=== PATIENT | male | born 1950 | race Caucasian/White ===

== ENCOUNTER 2022-02-12 21:18 | Inpatient (IN) | payer OTHER ==
[~2022-02-12] VITALS: Ht 182.9 cm; Wt 79.4 kg
[2022-02-12 21:30] VITALS: BP_SYST 135
[2022-02-12 22:13] LABS: HEMATOCRIT 42.1 % (36-54); MEAN CORPUSCULAR HEMOGLOBIN 29 pg (27-31); MEAN CORPUSCULAR HGB CONC 33 % (32-36); MEAN CORPUSCULAR VOLUME 87 fL (79.0-98.0); PLATELET COUNT (AUTO) 295 K/uL (130-430); RED BLOOD CELL COUNT(AUTO) 4.85 MIL/uL (4.2-6.2); RED CELL DISTRIBUTION WIDTH 13.9 % (9.0-15.0); WHITE BLOOD COUNT (AUTO) 18.9 K/uL (4.8-10.8)
[2022-02-12 22:29] LABS: ANION GAP 7 (5-15); BAND % (MANUAL) 3 % (0-6); BASOPHILS % (MANUAL) 0 % (0-2); CALCIUM 9.2 mg/dL (8.4-11.0); CHLORIDE 98 mmol/L (98-107); CREATININE 1.35 mg/dL (0.55-1.30); EOSINOPHILS % (MANUAL) 1 % (0-7); GLUCOSE 198 mg/dL (70-99); LYMPHOCYTES % (MANUAL) 8 % (20-46); MONOCYTES % (MANUAL) 6 % (0-11); UREA NITROGEN, BLOOD 20 mg/dL (8-21)
[2022-02-12 22:37] LABS: ALANINE AMINOTRANSFERASE 16 U/L (12-78); ALBUMIN 2.3 g/dL (3.4-4.8); ASPARTATE AMINOTRANSFERASE 18 U/L (10-37); TOTAL BILIRUBIN 0.6 mg/dL (0.0-1.0)
[2022-02-12 23:00] LABS: GFR AFRICAN AMERICAN 67 mL/min (>90)
[2022-02-12 23:49] LABS: BILIRUBIN,URINE NEGATIVE (NEGATIVE); BLOOD, URINE NEGATIVE (NEGATIVE); CLARITY/URINE CLEAR (CLEAR); COLOR,URINE YELLOW (YELLOW); GLUCOSE,URINE NEGATIVE (NEGATIVE); KETONES,URINE NEGATIVE (NEGATIVE); LEUKOCYTE ESTERASE ,URINE NEGATIVE (NEGATIVE); NITRITE, URINE NEGATIVE (NEGATIVE); PH,URINE 6.5 (5.0-8.0); PROTEIN URINE NEGATIVE (NEGATIVE); UROBILINOGEN,URINE 0.2 (0.2-1.0)
[2022-02-13] MEDS ORDERED: MEROPENEM 1 GM IVPB PREMIX 50 ML IV ONE (00:15)
[2022-02-13] MEDS ORDERED: VANCOMYCIN HCL 1,000 MG in NS 250 ML IV ONE (00:15)
[2022-02-13] MEDS ORDERED: VANCOMYCIN HCL 1000 MG/VIAL IV ONE (00:50)
[2022-02-13] MEDS ORDERED: MEROPENEM 1 GM VIAL IV ONE (00:58)
[2022-02-13] MEDS ORDERED: PRAV20TA59 PO (01:04)
[2022-02-13] MEDS ORDERED: INSNLG7030 SUBCUT (01:04)
[2022-02-13] MEDS ORDERED: INSU100V9 SQ (01:04)
[2022-02-13] MEDS ORDERED: HYDR-3917 PO (01:04)
[2022-02-13] MEDS ORDERED: TAMS-11 PO (01:04)
[2022-02-13] MEDS ORDERED: INSU100V42 PO (01:04)
[2022-02-13] MEDS ORDERED: MELA1TAB14 PO (01:04)
[2022-02-13] MEDS ORDERED: ALLO300T2 PO (01:04)
[2022-02-13] MEDS ORDERED: ISOS30TA85 PO (01:04)
[2022-02-13] MEDS ORDERED: ASPI-1393 PO (01:04)
[2022-02-13] MEDS ORDERED: FURO-150 PO (01:04)
[2022-02-13] MEDS ORDERED: LISI20TA30 PO (01:04)
[2022-02-13] MEDS ORDERED: METO25TA6 PO (01:04)
[2022-02-13] MEDS ORDERED: POTA8TAB66 PO (01:04)
[2022-02-13] MEDS ORDERED: ACET325T PO (01:04)
[2022-02-13] MEDS ORDERED: LEVO750T64 PO (01:04)
[2022-02-13] MEDS ORDERED: MORPHINE 4 MG INJ. 4 MG/ML VIAL IVP ONE (01:15)
[2022-02-13] MEDS ORDERED: ONDANSETRON HCL 4 MG/2 ML VIAL IVP PRN (02:00)
[2022-02-13 02:50] VITALS: BP_SYST 152
[2022-02-13] MEDS: 0.45% NACL 1,000 ML IV SCH ×2 (03:54→14:53)
[2022-02-13] MEDS: MORPHINE 4 MG INJ. 4 MG/ML VIAL IVP PRN (03:56)
[2022-02-13 08:00] VITALS: BP_SYST 144
[2022-02-13] MEDS: HYDROmorphone 1 MG/ML INJ. CARTRIDGE IVP PRN ×3 (10:13→20:39)
[2022-02-13 11:38] VITALS: BP_SYST 122
[2022-02-13] MEDS ORDERED: FUROSEMIDE 20 MG TABLET PO ONE (12:45)
[2022-02-13] MEDS ORDERED: NALOXONE HCL 0.4 MG/ML AMP (NARCAN) IVP PRN (12:45)
[2022-02-13] MEDS ORDERED: ACETAMINOPHEN 325 MG TABLET PO PRN (12:45)
[2022-02-13] MEDS ORDERED: ASPIRIN 81 MG TABLET(ECOTRIN) PO ONE (12:45)
[2022-02-13] MEDS ORDERED: INSULIN GLARGINE 100 UNITS/ML, 10 ML VIAL SQ ONE (13:15)
[2022-02-13 13:27] LABS: BASOPHILS # (AUTO) 0.1 K/uL (0.0-0.2); BASOPHILS % (AUTO) 0.6 % (0.0-2.0); EOSINOPHILS # (AUTO) 0.2 K/uL (0.0-0.4); EOSINOPHILS % (AUTO) 1.6 % (0.0-4.0); HEMATOCRIT 40.7 % (36-54); HEMOGLOBIN 13.6 g/dL (14.0-18.0); LYMPHOCYTES # (AUTO) 1.6 K/uL (1.0-5.5); LYMPHOCYTES % (AUTO) 12.2 % (20.5-51.5); MEAN CORPUSCULAR HEMOGLOBIN 29 pg (27-31); MEAN CORPUSCULAR HGB CONC 34 % (32-36); MEAN CORPUSCULAR VOLUME 87 fL (79.0-98.0); MONOCYTES # (AUTO) 1.3 K/uL (0.0-1.0); MONOCYTES % (AUTO) 9.8 % (1.7-9.3); NEUTROPHILS % (AUTO) 75.8 % (40.0-70.0); PLATELET COUNT (AUTO) 301 K/uL (130-430); RED BLOOD CELL COUNT(AUTO) 4.68 MIL/uL (4.2-6.2); RED CELL DISTRIBUTION WIDTH 14.2 % (9.0-15.0); WHITE BLOOD COUNT (AUTO) 13.2 K/uL (4.8-10.8)
[2022-02-13 13:35] LABS: CALCIUM 8.7 mg/dL (8.4-11.0); CREATININE 1.38 mg/dL (0.55-1.30)
[2022-02-13 15:49] VITALS: BP_SYST 120
[2022-02-13] MEDS: PIPERACILLIN/TAZO 2.25G/DEX-IS 50 ML IV SCH (18:15)
[2022-02-13 20:05] VITALS: BP_SYST 159
[2022-02-13] MEDS: TAMSULOSIN HCL 0.4 MG CAP PO SCH (20:38)
[2022-02-13] MEDS: ATORVASTATIN 10 MG TABLET PO SCH (20:38)
[2022-02-13] MEDS: INSULIN NPH/REGULAR 70-30, 100 UNITS/ML, 3 ML VIAL SUBCUT SCH (22:37)
[2022-02-13] MEDS: INSULIN GLARGINE 100 UNITS/ML, 10 ML VIAL SQ SCH (22:41)
[2022-02-14 00:01] VITALS: BP_SYST 147
[2022-02-14] MEDS: PIPERACILLIN/TAZO 2.25G/DEX-IS 50 ML IV SCH ×3 (00:40→18:18)
[2022-02-14] MEDS: 0.45% NACL 1,000 ML IV SCH ×2 (06:01→18:18)
[2022-02-14] MEDS: INSULIN NPH/REGULAR 70-30, 100 UNITS/ML, 3 ML VIAL SUBCUT SCH ×2 (09:20→21:53)
[2022-02-14] MEDS: INSULIN GLARGINE 100 UNITS/ML, 10 ML VIAL SQ SCH ×2 (09:21→21:54)
[2022-02-14] MEDS: FUROSEMIDE 20 MG TABLET PO SCH (09:21)
[2022-02-14] MEDS: METOPROLOL TARTRATE 25 MG TABLET PO SCH (09:22)
[2022-02-14] MEDS: lisinopriL 20 MG TABLET PO SCH (09:22)
[2022-02-14] MEDS: ASPIRIN 81 MG TABLET(ECOTRIN) PO SCH (09:22)
[2022-02-14] MEDS: ISOSORBIDE MONONITRATE 30 MG TAB.ER.24H PO SCH (09:22)
[2022-02-14] MEDS: POTASSIUM CHLORIDE 8 MEQ TABLET.SA PO SCH (09:23)
[2022-02-14] MEDS: ALLOPURINOL 300 MG TABLET (ZYLOPRIM) PO SCH (09:27)
[2022-02-14] MEDS: HYDROmorphone 1 MG/ML INJ. CARTRIDGE IVP PRN ×3 (11:07→20:37)
[2022-02-14 11:21] VITALS: BP_SYST 159
[2022-02-14 15:22] VITALS: BP_SYST 123
[2022-02-14 20:00] VITALS: BP_SYST 106
[2022-02-14] MEDS: TAMSULOSIN HCL 0.4 MG CAP PO SCH (20:35)
[2022-02-14] MEDS: ATORVASTATIN 10 MG TABLET PO SCH (20:35)
[2022-02-14] MEDS: MELATONIN 3 MG TABLET PO SCH (21:00)
[2022-02-15] MEDS: PIPERACILLIN/TAZO 2.25G/DEX-IS 50 ML IV SCH ×5 (00:15→23:52)
[2022-02-15 00:53] VITALS: BP_SYST 121
[2022-02-15] MEDS: 0.45% NACL 1,000 ML IV SCH ×2 (06:38→20:49)
[2022-02-15 06:48] LABS: BASOPHILS # (AUTO) 0.1 K/uL (0.0-0.2); BASOPHILS % (AUTO) 0.6 % (0.0-2.0); EOSINOPHILS # (AUTO) 0.2 K/uL (0.0-0.4); EOSINOPHILS % (AUTO) 1.5 % (0.0-4.0); HEMATOCRIT 38.1 % (36-54); HEMOGLOBIN 12.7 g/dL (14.0-18.0); LYMPHOCYTES # (AUTO) 1.8 K/uL (1.0-5.5); LYMPHOCYTES % (AUTO) 12.9 % (20.5-51.5); MEAN CORPUSCULAR HEMOGLOBIN 29 pg (27-31); MEAN CORPUSCULAR HGB CONC 33 % (32-36); MEAN CORPUSCULAR VOLUME 88 fL (79.0-98.0); MONOCYTES # (AUTO) 1.4 K/uL (0.0-1.0); MONOCYTES % (AUTO) 10.6 % (1.7-9.3); NEUTROPHILS # (AUTO) 10.2 K/uL (1.8-7.7); NEUTROPHILS % (AUTO) 74.4 % (40.0-70.0); PLATELET COUNT (AUTO) 286 K/uL (130-430); RED BLOOD CELL COUNT(AUTO) 4.36 MIL/uL (4.2-6.2); WHITE BLOOD COUNT (AUTO) 13.7 K/uL (4.8-10.8)
[2022-02-15 07:10] LABS: ALBUMIN 2.2 g/dL (3.4-4.8); CALCIUM 8.3 mg/dL (8.4-11.0); CREATININE 1.81 mg/dL (0.55-1.30); TOTAL BILIRUBIN 0.8 mg/dL (0.0-1.0)
[2022-02-15] MEDS: FUROSEMIDE 20 MG TABLET PO SCH (08:39)
[2022-02-15] MEDS: ISOSORBIDE MONONITRATE 30 MG TAB.ER.24H PO SCH (08:40)
[2022-02-15] MEDS: lisinopriL 20 MG TABLET PO SCH (08:41)
[2022-02-15] MEDS: ALLOPURINOL 300 MG TABLET (ZYLOPRIM) PO SCH (08:41)
[2022-02-15] MEDS: METOPROLOL TARTRATE 25 MG TABLET PO SCH (08:42)
[2022-02-15] MEDS: POTASSIUM CHLORIDE 8 MEQ TABLET.SA PO SCH (08:43)
[2022-02-15] MEDS: ASPIRIN 81 MG TABLET(ECOTRIN) PO SCH (08:43)
[2022-02-15] MEDS: INSULIN GLARGINE 100 UNITS/ML, 10 ML VIAL SQ SCH ×2 (08:45→22:04)
[2022-02-15] MEDS: INSULIN NPH/REGULAR 70-30, 100 UNITS/ML, 3 ML VIAL SUBCUT SCH ×2 (08:48→22:03)
[2022-02-15] MEDS: HYDROmorphone 1 MG/ML INJ. CARTRIDGE IVP PRN ×2 (08:49→12:51)
[2022-02-15 11:21] VITALS: BP_SYST 122
[2022-02-15 15:20] VITALS: BP_SYST 91
[2022-02-15] MEDS: HYDROcodone/ACETAMIN 5-325 MG TAB (NORCO/ VICODIN) PO PRN (17:28)
[2022-02-15 20:00] VITALS: BP_SYST 93
[2022-02-15] MEDS: MORPHINE 4 MG INJ. 4 MG/ML VIAL IVP PRN (21:56)
[2022-02-15] MEDS: TAMSULOSIN HCL 0.4 MG CAP PO SCH (21:57)
[2022-02-15] MEDS: ATORVASTATIN 10 MG TABLET PO SCH (21:57)
[2022-02-15] MEDS: MELATONIN 3 MG TABLET PO SCH (22:12)
[2022-02-16 00:53] VITALS: BP_SYST 125
[2022-02-16] MEDS: MORPHINE 4 MG INJ. 4 MG/ML VIAL IVP PRN ×4 (02:56→21:32)
[2022-02-16] MEDS: HYDROcodone/ACETAMIN 5-325 MG TAB (NORCO/ VICODIN) PO PRN ×2 (05:01→16:52)
[2022-02-16] MEDS: PIPERACILLIN/TAZO 2.25G/DEX-IS 50 ML IV SCH (05:01)
[2022-02-16 07:53] VITALS: BP_SYST 162
[2022-02-16] MEDS: lisinopriL 20 MG TABLET PO SCH (09:10)
[2022-02-16] MEDS: ISOSORBIDE MONONITRATE 30 MG TAB.ER.24H PO SCH (09:10)
[2022-02-16] MEDS: METOPROLOL TARTRATE 25 MG TABLET PO SCH (09:11)
[2022-02-16] MEDS: FUROSEMIDE 20 MG TABLET PO SCH (09:13)
[2022-02-16] MEDS: ASPIRIN 81 MG TABLET(ECOTRIN) PO SCH (09:14)
[2022-02-16] MEDS: POTASSIUM CHLORIDE 8 MEQ TABLET.SA PO SCH (09:15)
[2022-02-16] MEDS: ALLOPURINOL 300 MG TABLET (ZYLOPRIM) PO SCH (09:25)
[2022-02-16] MEDS: INSULIN NPH/REGULAR 70-30, 100 UNITS/ML, 3 ML VIAL SUBCUT SCH ×2 (09:31→23:03)
[2022-02-16] MEDS: INSULIN GLARGINE 100 UNITS/ML, 10 ML VIAL SQ SCH ×2 (09:36→23:02)
[2022-02-16 09:55] LABS: BASOPHILS # (AUTO) 0.1 K/uL (0.0-0.2); BASOPHILS % (AUTO) 0.8 % (0.0-2.0); EOSINOPHILS # (AUTO) 0.3 K/uL (0.0-0.4); EOSINOPHILS % (AUTO) 2.7 % (0.0-4.0); HEMOGLOBIN 13.8 g/dL (14.0-18.0); LYMPHOCYTES # (AUTO) 1.9 K/uL (1.0-5.5); LYMPHOCYTES % (AUTO) 18.4 % (20.5-51.5); MEAN CORPUSCULAR HEMOGLOBIN 29 pg (27-31); MEAN CORPUSCULAR HGB CONC 33 % (32-36); MEAN CORPUSCULAR VOLUME 88 fL (79.0-98.0); MONOCYTES # (AUTO) 1.2 K/uL (0.0-1.0); MONOCYTES % (AUTO) 11.8 % (1.7-9.3); NEUTROPHILS # (AUTO) 6.9 K/uL (1.8-7.7); NEUTROPHILS % (AUTO) 66.3 % (40.0-70.0); PLATELET COUNT (AUTO) 256 K/uL (130-430); RED BLOOD CELL COUNT(AUTO) 4.78 MIL/uL (4.2-6.2); RED CELL DISTRIBUTION WIDTH 14.2 % (9.0-15.0); WHITE BLOOD COUNT (AUTO) 10.5 K/uL (4.8-10.8)
[2022-02-16] MEDS: 0.45% NACL 1,000 ML IV SCH ×2 (10:00→23:20)
[2022-02-16 10:26] LABS: ALBUMIN 2.4 g/dL (3.4-4.8); CALCIUM 8.5 mg/dL (8.4-11.0); CREATININE 1.83 mg/dL (0.55-1.30); TOTAL BILIRUBIN 0.6 mg/dL (0.0-1.0)
[2022-02-16 11:43] VITALS: BP_SYST 146
[2022-02-16] MEDS ORDERED: AMOX-423 PO (12:09)
[2022-02-16] MEDS: AMOXICILLIN/CLAVULANATE POTASSIUM 500 MG TABLET PO SCH ×2 (14:20→22:00)
[2022-02-16 17:13] VITALS: BP_SYST 146
[2022-02-16 20:00] VITALS: BP_SYST 107
[2022-02-16] MEDS: MELATONIN 3 MG TABLET PO SCH (21:34)
[2022-02-16] MEDS: ATORVASTATIN 10 MG TABLET PO SCH (21:34)
[2022-02-16] MEDS: TAMSULOSIN HCL 0.4 MG CAP PO SCH (21:34)
[2022-02-17 00:30] VITALS: BP_SYST 121
[2022-02-17] MEDS: MORPHINE 4 MG INJ. 4 MG/ML VIAL IVP PRN ×2 (02:25→07:07)
[2022-02-17] MEDS: AMOXICILLIN/CLAVULANATE POTASSIUM 500 MG TABLET PO SCH (07:01)
[2022-02-17] MEDS: 0.45% NACL 1,000 ML IV SCH (07:05)
[2022-02-17 08:10] VITALS: BP_SYST 118
[2022-02-17] MEDS: POTASSIUM CHLORIDE 8 MEQ TABLET.SA PO SCH (08:53)
[2022-02-17] MEDS: INSULIN GLARGINE 100 UNITS/ML, 10 ML VIAL SQ SCH (09:02)
[2022-02-17] MEDS: ALLOPURINOL 300 MG TABLET (ZYLOPRIM) PO SCH (09:03)
[2022-02-17] MEDS: INSULIN NPH/REGULAR 70-30, 100 UNITS/ML, 3 ML VIAL SUBCUT SCH (09:03)
[2022-02-17] MEDS: lisinopriL 20 MG TABLET PO SCH (09:04)
[2022-02-17] MEDS: FUROSEMIDE 20 MG TABLET PO SCH (09:04)
[2022-02-17] MEDS: METOPROLOL TARTRATE 25 MG TABLET PO SCH (09:04)
[2022-02-17] MEDS: ASPIRIN 81 MG TABLET(ECOTRIN) PO SCH (09:05)
[2022-02-17] MEDS: ISOSORBIDE MONONITRATE 30 MG TAB.ER.24H PO SCH (09:05)
[2022-02-17 09:23] LABS: CALCIUM 9.1 mg/dL (8.4-11.0); CREATININE 1.59 mg/dL (0.55-1.30)
[2022-02-17 09:43] VITALS: BP_SYST 118
== END 2022-02-17 10:52 | DRG 871 ==
LOC: SED 21:18 → SMU 02-13 01:57
PROVIDERS: ADMIT Internal Medicine; ATTEND Internal Medicine
DX: A41.9 Sepsis, unspecified organism (principal); G00.9 Bacterial meningitis, unspecified; J69.0 Pneumonitis due to inhalation of food and vomit; N17.0 Acute kidney failure with tubular necrosis; I69.354 Hemiplegia and hemiparesis following cerebral infarction affecting left non-dominant side; E87.1 Hypo-osmolality and hyponatremia; E88.09 Other disorders of plasma-protein metabolism, not elsewhere classified; I25.10 Atherosclerotic heart disease of native coronary artery without angina pectoris; J32.9 Chronic sinusitis, unspecified; Z20.822 Contact with and (suspected) exposure to COVID-19; I12.9 Hypertensive chronic kidney disease with stage 1 through stage 4 chronic kidney disease, or unspecified chronic kidney disease; E11.22 Type 2 diabetes mellitus with diabetic chronic kidney disease; N18.31 Chronic kidney disease, stage 3a; Z95.1 Presence of aortocoronary bypass graft; Z79.4 Long term (current) use of insulin; Z79.891 Long term (current) use of opiate analgesic; Z79.899 Other long term (current) drug therapy; Z79.82 Long term (current) use of aspirin; Z53.20 Procedure and treatment not carried out because of patient's decision for unspecified reasons
CPT/HCPCS: 0241U; 36415; 70450-TC; 71045; 76376; 76770; 80048; 80053; 81003; 82962; 83880; 84484; 85007; 85025; 85027; 85379; 85651-TC; 86738; 87040; 87081; 93005; 96365; 96375; 99285; J1170; J1815; J2185; J2270; J2543; J3370